=== PATIENT | female | born 1970 | race Hispanic/Latino ===

== ENCOUNTER 2018-11-17 09:07 | Inpatient (IN) | payer BC ==
[2018-11-17 09:15] VITALS: BMI 19.8
[2018-11-17] MEDS ORDERED: Albuterol-Ipratrop 3 mg / 0.5 (3 ml) UD INH STA (10:12)
[2018-11-17] MEDS ORDERED: Albuterol-Ipratrop 3 mg / 0.5 (3 ml) UD ONE (10:22)
[2018-11-17 11:21] LABS: BASO % 0.6 % (0.0-2.0); EOS # 0.2 K/uL (0.0-0.7); EOS % 3.6 % (0.0-4.0); HEMOGLOBIN 13.4 g/dL (12.0-16.0); LYMPH # 1.1 K/uL (1.0-4.3); LYMPH % 16.9 % (20.0-40.0); MEAN CELL VOLUME 101.1 fl (81.0-99.0); MEAN CORPUSCULAR HEMOGLOBIN 33.1 pg (27.0-31.0); MEAN CORPUSCULAR HGB CONC 32.7 g/dL (33.0-37.0); MEAN PLATELET VOLUME 7.8 fl (7.2-11.7); MONO # 0.6 K/uL (0.0-0.8); MONO % 9.5 % (0.0-10.0); NEUT # 4.6 K/uL (1.8-7.0); NEUT % 69.4 % (50.0-75.0); RBC 4.04 Mil/uL (3.80-5.20); RED CELL DISTRIBUTION WIDTH 13.6 % (11.5-14.5); WHITE BLOOD COUNT 6.6 K/uL (4.8-10.8)
[2018-11-17 11:28] LABS: BLOOD UREA NITROGEN 7 mg/dl (7-17); CALCIUM 9.2 mg/dL (8.4-10.2); GFR NON-AFRICAN AMERICAN > 60
[2018-11-17 11:37] LABS: B-TYPE NATRIURETIC PEPTIDE 103 pg/ml (0-450)
--- NOTE | 2018-11-17 11:39 | RAD ---
Date of service: 11/17/2018 HISTORY: cp dyspnea cough fever COMPARISON: No prior. TECHNIQUE: Chest PA and lateral FINDINGS: LUNGS: Right lower lobe infiltrate. PLEURA: No significant pleural effusion identified. No pneumothorax apparent. CARDIOVASCULAR: No aortic atherosclerotic calcification present. Normal cardiac size. No pulmonary vascular congestion. OSSEOUS STRUCTURES: No significant abnormalities. VISUALIZED UPPER ABDOMEN: Normal. OTHER FINDINGS: None. IMPRESSION: Right lower lobe infiltrate.
[2018-11-17] MEDS ORDERED: cefTRIAXone (Rocephin) 1 gm Inj ONE (11:49)
--- NOTE | 2018-11-17 12:30 | ED PDOC ---
HPI: SOB/CHF/COPD Time Seen by Provider: 11/17/18 09:47 Chief Complaint (Nursing): Shortness Of Breath Chief Complaint (Provider): fever, cough and SOB History Per: Patient History/Exam Limitations: no limitations Onset/Duration Of Symptoms: Days (x2 weeks) Current Symptoms Are (Timing): Still Present Associated Symptoms: Fever, Productive Cough. denies: Chest Pain Additional Complaint(s): Maggie Robison is a 48 year old female, with a past medical history of possible asthma, who presents to the emergency department complaining of fever, cough and difficulty breathing onset for x2 weeks. Patient states shortness of breath was worst today so she called the ambulance. Patient also reports an occasional wheezing and an intermittent fever that worsened today. She states x14 weeks ago she was told she had an infection, they checked her for the flu which came back negative. Patient was started on Z-jamir twice and Augmentin with no improvement of symptoms. She denies any nausea, vomiting, diarrhea or other medical complaints. PMD: Helio Chávez Past Medical History Reviewed: Historical Data, Nursing Documentation, Vital Signs Vital Signs: Last Vital Signs Temp 97.8 F 11/17/18 12:18 Pulse 80 11/17/18 12:18 Resp 25 H 11/17/18 12:18 BP 130/74 11/17/18 12:18 Pulse Ox 98 11/17/18 12:18 - Medical History PMH: Asthma (possible) - Surgical History Other surgeries: orthopedic surgeries - Family History Family History: States: Unknown Family Hx - Social History Current smoker - smoking cessation education provided: No Alcohol: Social Drugs: Denies - Immunization History Hx Influenza Vaccination: Yes (2018) - Home Medications Home Medications: Ambulatory Orders Medication Instructions Recorded RX: No Known Home Med 11/17/18 - Allergies Allergies/Adverse Reactions: Allergies Allergy/AdvReac Type Severity Reaction Status Date / Time azithromycin AdvReac Mild REDNESS Verified 11/17/18 14:16 Curb-65 Severity Score - CURB-65 Severity Score Confusion: No Bun >19mg/dl (>7mmol/L): No Respiratory Rate greater than/equal to 30: Yes Systolic BP <90 or Diastolic BP less than/equal 60mmHg: No Age >64: No Curb-65 Score: 1 Percentage 30-day mortality: 2.7% Review of Systems ROS Statement: Except As Marked, All Systems Reviewed And Found Negative Constitutional: Positive for: Fever Cardiovascular: Negative for: Chest Pain Respiratory: Positive for: Cough, Shortness of Breath, Wheezing Gastrointestinal: Negative for: Nausea, Vomiting, Diarrhea Physical Exam - Reviewed Nursing Documentation Reviewed: Yes Vital Signs Reviewed: Yes - Physical Exam Appears: Positive for: In Acute Distress (mild respiratory) Head Exam: Positive for: ATRAUMATIC, NORMAL INSPECTION, NORMOCEPHALIC Skin: Positive for: Normal Color, Warm, Dry Eye Exam: Positive for: Normal appearance, EOMI Neck: Positive for: Normal, Painless ROM, Supple Cardiovascular/Chest: Positive for: Regular Rate, Rhythm. Negative for: Murmur Respiratory: Positive for: Accessory Muscle Use (mild), Wheezing, Respiratory Distress (mild), Other (tachypnea) Gastrointestinal/Abdominal: Positive for: Normal Exam, Soft. Negative for: Tenderness Back: Positive for: Normal Inspection. Negative for: L CVA Tenderness, R CVA Te nderness, Vertebral Tenderness Extremity: Positive for: Normal ROM (upper and lower extremities). Negative for: Deformity, Swelling Neurologic/Psych: Positive for: Alert, Oriented. Negative for: Motor/Sensory Deficits - Laboratory Results Result Diagrams: 11/17/18 10:15 11/17/18 10:15 Lab Results: Troponin I < 0.0120 ng/mL (0.00-0.120) 11/17/18 10:15 NT-Pro-B Natriuret Pep 103 pg/ml (0-450) 11/17/18 10:15 - ECG O2 Sat by Pulse Oximetry: 98 (RA) Pulse Ox Interpretation: Normal - Radiology X-Ray: Viewed By Me, Read By Radiologist X-Ray Interpretation: Infiltrates - Physician Consult Information Time Consulting Physican Contacted: 12:00 Physician Contacted: Daniel Franks Medical Decision Making Medical Decision Making: Time: 09:47 Initial Impression: Shortness of breath, wheezing, fever and cough. Differential includes bronchitis, PNA, and influenza. Initial Plan: --EKG --B-Type Natriuretic Peptide --BMP --Troponin I --CBC w/ differential --Chest two views (PA/LAT) [RAD] --Duoneb 3 ml INH --Rocephin 1gm IVPB --SOLU-medrol 125 mg IVP --Blood culture --Influenza A B --Reevaluation 11:35 CXR FINDINGS: LUNGS: Right lower lobe infiltrate. PLEURA: No significant pleural effusion identified. No pneumothorax apparent. CARDIOVASCULAR: No aortic atherosclerotic calcification present. Normal cardiac size. No pulmonary vascular congestion. OSSEOUS STRUCTURES: No significant abnormalities. VISUALIZED UPPER ABDOMEN: Normal. OTHER FINDINGS: None. IMPRESSION: Right lower lobe infiltrate. Scribe Attestation: Documented by Maged Granger, acting as a scribe for Hudson Kwon MD Provider Scribe Attestation: All medical record entries made by the Scribe were at my direction and personally dictated by me. I have reviewed the chart and agree that the record accurately reflects my personal performance of the history, physical exam, medical decision making, and the department course for this patient. I have also personally directed, reviewed, and agree with the discharge instructions and disposition. Disposition - Clinical Impression Clinical Impression: Pneumonia - Patient ED Disposition Is Patient to be Admitted: No Discussed With DrShaylee: Daniel Chávez Doctor Will See Patient In The: Hospital Counseled Patient/Family Regarding: Studies Performed, Diagnosis - Disposition Disposition Time: 12:00 Condition: FAIR - Pt Status Changed To: Hospital Disposition Of: Inpatient - Admit Certification Admit to Inpatient:: After my assessment, the patient will require hospitalization for at least two midnights. This is because of the severity of symptoms shown, intensity of services needed, and/or the medical risk in this patient being treated as an outpatient. - POA Present On Arrival: None Core Measure Indicators: Pneumonia
[2018-11-17] MEDS ORDERED: Sodium Chloride 3% for Inhalation 4 ML VIAL.NEB IH PRN (12:38)
[2018-11-17] MEDS ORDERED: Azithromycin 500 MG IV IVPB ONE (13:02)
[2018-11-17] MEDS: Azithromycin 500 MG in Sodium Chloride 0.9% 250 ML IVPB SCH (13:04)
[2018-11-17 14:43] LABS: SQUAMOUS EPITHIAL 12 /hpf (0-5); URINE BACTERIA RARE (<OCC)
[2018-11-17 15:01] LABS: URINE CLARITY Clear (Clear); URINE COLOR YELLOW (YELLOW); URINE GLUCOSE (UA) NEGATIVE (NEGATIVE)
[2018-11-17 15:02] LABS: URINE BILIRUBIN NEGATIVE (NEGATIVE); URINE BLOOD NEGATIVE (NEGATIVE); URINE LEUKOCYTE ESTERASE NEGATIVE Leu/uL (Negative); URINE PROTEIN 30 mg/dL (NEGATIVE); URINE UROBILINOGEN 0.2 mg/dL (0.2-1.0)
[2018-11-17] MEDS: Albuterol 0.083% Inhal Sol (2.5 mg/3 mL) UD INH PRN ×2 (16:58→23:38)
[2018-11-17] MEDS: guaiFENesin 600 mg ER Tab PO SCH (20:31)
--- NOTE | 2018-11-17 23:29 | CP.PCM.HP ---
History of Present Illness - History of Present Illness History of Present Illness: 48 yo admitted for RLL pneumonia Present on Admission - Present on Admission Any Indicators Present on Admission: No Past Patient History - Past Medical History & Family History Past Medical History?: Yes - Past Social History Alcohol: Social Drugs: Denies - CARDIAC Hx Cardiac Disorders: No - PULMONARY Hx Asthma: Yes (possible) - NEUROLOGICAL Hx Neurological Disorder: No - HEENT Hx HEENT Problems: No - RENAL Hx Chronic Kidney Disease: No - ENDOCRINE/METABOLIC Hx Endocrine Disorders: No - HEMATOLOGICAL/ONCOLOGICAL Hx Blood Disorders: No - INTEGUMENTARY Hx Dermatological Problems: No - MUSCULOSKELETAL/RHEUMATOLOGICAL Hx Musculoskeletal Disorders: No Hx Falls: No - GASTROINTESTINAL Hx Gastrointestinal Disorders: No - GENITOURINARY/GYNECOLOGICAL Hx Genitourinary Disorders: No - PSYCHIATRIC Hx Psychophysiologic Disorder: No Hx Substance Use: No - SURGICAL HISTORY Hx Surgeries: Yes Other/Comment: left ankle surgery - ANESTHESIA Hx Anesthesia: Yes Hx Anesthesia Reactions: No Hx Malignant Hyperthermia: No Meds Allergies/Adverse Reactions: Allergies Allergy/AdvReac Type Severity Reaction Status Date / Time azithromycin AdvReac Mild REDNESS Verified 11/17/18 14:16 Physical Exam - Respiratory Exam Respiratory Exam: NORMAL BREATHING PATTERN - Cardiovascular Exam Cardiovascular Exam: REGULAR RHYTHM - GI/Abdominal Exam GI & Abdominal Exam: Normal Bowel Sounds Results - Vital Signs Recent Vital Signs: Last Vital Signs Temp 97.8 F 11/17/18 14:13 Pulse 80 11/17/18 17:01 Resp 18 11/17/18 14:55 BP 137/75 11/17/18 14:13 Pulse Ox 98 11/17/18 15:04 - Labs Result Diagrams: 11/17/18 10:15 11/17/18 10:15 Labs: Laboratory Results - last 24 hr 11/17/18 11/17/18 11/17/18 10:15 10:15 11:45 WBC 6.6 RBC 4.04 Hgb 13.4 Hct 40.9 MCV 101.1 H MCH 33.1 H MCHC 32.7 L RDW 13.6 Plt Count 412 H MPV 7.8 Neut % (Auto) 69.4 Lymph % (Auto) 16.9 L [place] % (Auto) 9.5 Eos % (Auto) 3.6 Baso % (Auto) 0.6 Neut # (Auto) 4.6 Lymph # (Auto) 1.1 [place] # (Auto) 0.6 Eos # (Auto) 0.2 Baso # (Auto) 0.0 Sodium 139 Potassium 3.7 Chloride 98 Carbon Dioxide 27 Anion Gap 18 BUN 7 Creatinine 0.5 L Est GFR ( Amer) > 60 Est GFR (Non-Af Amer) > 60 Random Glucose 83 Calcium 9.2 Troponin I < 0.0120 NT-Pro-B Natriuret Pep 103 Urine Color Urine Clarity Urine pH Ur Specific [place] Urine Protein Urine Glucose (UA) Urine Ketones Urine Blood Urine Nitrate Urine Bilirubin Urine Urobilinogen Ur Leukocyte Esterase Urine RBC (Auto) Urine Microscopic WBC Ur Squamous Epith Cells Urine Bacteria Influenza Typ A,B (EIA) Negative for flu a/b Mycoplasma pneumon IgM 11/17/18 11/17/18 12:15 12:15 WBC RBC Hgb Hct MCV MCH MCHC RDW Plt Count MPV Neut % (Auto) Lymph % (Auto) [place] % (Auto) Eos % (Auto) Baso % (Auto) Neut # (Auto) Lymph # (Auto) [place] # (Auto) Eos # (Auto) Baso # (Auto) Sodium Potassium Chloride Carbon Dioxide Anion Gap BUN Creatinine Est GFR ( Amer) Est GFR (Non-Af Amer) Random Glucose Calcium Troponin I NT-Pro-B Natriuret Pep Urine Color Yellow Urine Clarity Clear Urine pH 7.0 Ur Specific [place] 1.015 Urine Protein 30 Urine Glucose (UA) Negative Urine Ketones Trace H Urine Blood Negative Urine Nitrate Negative Urine Bilirubin Negative Urine Urobilinogen 0.2 Ur Leukocyte Esterase Negative Urine RBC (Auto) 2 Urine Microscopic WBC 2 Ur Squamous Epith Cells 12 H Urine Bacteria Rare Influenza Typ A,B (EIA) Mycoplasma pneumon IgM Negative Assessment & Plan - Assessment and Plan (Free Text) Assessment: RLL pneumonia IVF O2 ABX Pulmonary consult - Date & Time Date: 11/17/18 Time: 22:22
[2018-11-18] MEDS: Albuterol 0.083% Inhal Sol (2.5 mg/3 mL) UD INH PRN ×2 (06:35→21:08)
[2018-11-18 06:49] LABS: BASO % 0.1 % (0.0-2.0); EOS % 0.3 % (0.0-4.0); HEMOGLOBIN 12.8 g/dL (12.0-16.0); LYMPH # 1.5 K/uL (1.0-4.3); LYMPH % 15.9 % (20.0-40.0); MEAN CELL VOLUME 100.9 fl (81.0-99.0); MEAN CORPUSCULAR HEMOGLOBIN 33.3 pg (27.0-31.0); MEAN PLATELET VOLUME 7.6 fl (7.2-11.7); MONO # 0.8 K/uL (0.0-0.8); NEUT # 7.2 K/uL (1.8-7.0); NEUT % 75.7 % (50.0-75.0); NRBC % 0.1 % (0.0-0.0); RBC 3.83 Mil/uL (3.80-5.20); RED CELL DISTRIBUTION WIDTH 13.1 % (11.5-14.5); WHITE BLOOD COUNT 9.5 K/uL (4.8-10.8)
[2018-11-18 06:58] LABS: ALB/GLOB RATIO 1.1 (1.0-2.1); ALBUMIN 3.6 g/dL (3.5-5.0); ALT/SGPT 25 U/L (9-52); AST/SGOT 21 U/L (14-36); BLOOD UREA NITROGEN 11 mg/dl (7-17); GFR NON-AFRICAN AMERICAN > 60
--- NOTE | 2018-11-18 09:30 | CARD ---
APPROVED REPORT Date of service: 11/17/2018 EKG Measurement Heart [id number] <Conclusion> Normal sinus rhythm Rightward axis Borderline ECG
[2018-11-18] MEDS: Azithromycin 500 MG in Sodium Chloride 0.9% 250 ML IVPB SCH (09:40)
[2018-11-18] MEDS: guaiFENesin 600 mg ER Tab PO SCH ×2 (09:40→22:08)
[2018-11-18] MEDS ORDERED: Hydrocortisone- 100 MG in Sodium Chloride 0.9% 100 ML IV SCH (12:15)
--- NOTE | 2018-11-18 12:18 | CP.PCM.CON ---
History of Present Illness - History of Present Illness History of Present Illness: This 48-year-old female nonsmoker was seen on consultation because of a right lower lobe pneumonia. She has been symptomatic for in excess of 2 weeks with congested cough productive of thick greenish sputum. She has had fever and chill s but no chest pain or hemoptysis. She has been treated with 2 courses of antibiotics from her primary medical doctor as an outpatient, the first being azithromycin and the second being Augmentin. Despite this medical treatment she continues to remain symptomatic and becoming more short of breath prompting presentation to the emergency room yesterday morning. Chest x-ray revealed a right lower lobe infiltrate without any fever or leukocytosis. She does have a possible diagnosis of asthma as an outpatient and was given aerosol therapy in the emergency room after which her breathing did improve. There may have been a similar episode of pneumonia, less severe, in the past which resolved with ou tpatient therapy. She is known to have recurrent sinus disease with posterior rhinorrhea and bronchitis in the past as well. Review of Systems - Review of Systems All systems: reviewed and no additional remarkable complaints except - Constitutional Constitutional: Chills, Fever - EENT Nose/Mouth/Throat: Nasal Congestion, Hoarsness, Sore Throat - Respiratory Respiratory: Cough, Wheezing, Chest Congestion, Change in Mucous Color Past Patient History - Infectious Disease Hx of Infectious Diseases: None - Past Medical History & Family History Past Medical History?: Yes Past Family History: Reviewed and not pertinent - Past Social History Smoking Status: Never Smoked (remote light cigarette use for a short time) Chewing Tobacco Use: No Cigar Use: No Alcohol: Social Drugs: Denies - CARDIAC Hx Cardiac Disorders: No - PULMONARY Hx Asthma: Yes (possible) Hx Bronchitis: Yes Hx Pneumonia: Yes (possibly last year improved with outpatient rx.) - NEUROLOGICAL Hx Neurological Disorder: No - HEENT Hx Sinusitis: Yes - RENAL Hx Chronic Kidney Disease: No - ENDOCRINE/METABOLIC Hx Endocrine Disorders: No - HEMATOLOGICAL/ONCOLOGICAL Hx Blood Disorders: No - INTEGUMENTARY Hx Dermatological Problems: No - MUSCULOSKELETAL/RHEUMATOLOGICAL Hx Musculoskeletal Disorders: No Hx Falls: No - GASTROINTESTINAL Hx Gastrointestinal Disorders: No - GENITOURINARY/GYNECOLOGICAL Hx Genitourinary Disorders: No - PSYCHIATRIC Hx Psychophysiologic Disorder: No Hx Substance Use: No - SURGICAL HISTORY Hx Surgeries: Yes Other/Comment: left ankle surgery - ANESTHESIA Hx Anesthesia: Yes Hx Anesthesia Reactions: No Hx Malignant Hyperthermia: No Meds Allergies/Adverse Reactions: Allergies Allergy/AdvReac Type Severity Reaction Status Date / Time azithromycin AdvReac Mild REDNESS Verified 11/17/18 14:16 - Medications Medications: Current Medications Acetaminophen (Tylenol 325mg Tab) 325 mg PO Q6 PRN PRN Reason: Sore Throat Acetylcysteine (Acetylcysteine 20%) 2 ml INH RBID DAVID Albuterol Sulfate (Albuterol 0.083% Inhal Zunilda (2.5 Mg/3 Ml) Ud) 2.5 mg INH RQ4 PRN PRN Reason: Shortness of Breath Last Admin: 11/18/18 06:35 Dose: 2.5 mg Guaifenesin (Mucinex La) 1,200 mg PO Q12 DAVID Last Admin: 11/18/18 09:40 Dose: 1,200 mg Azithromycin 500 mg/ Sodium (Chloride) 250 mls @ 250 mls/hr IVPB DAILY DAVID; Protocol Last Admin: 11/18/18 09:40 Dose: 250 mls/hr Ceftriaxone Sodium 1 gm/ (Sodium Chloride) 100 mls @ 100 mls/hr IVPB DAILY DAVID; Protocol Last Admin: 11/18/18 09:30 Dose: 100 mls/hr Hydrocortisone Sodium Succinate 100 mg/ Sodium Chloride 100 mls @ 100 mls/hr IV Q12 DAVID Zolpidem Tartrate (Ambien) 5 mg PO HS DAVID Last Admin: 11/18/18 00:02 Dose: 5 mg Physical Exam - Additional Findings Additional findings: Well-nourished, well-developed female in no acute distress. Supplemental oxygen via nasal cannula at 2 L/m. No cyanosis or dependent edema. No calf tenderness. No palpable lymphadenopathy. Nasal passages are patent bilaterally. No bleeding or exudate. Conjunctivae are injected bilaterally. No scleral icterus. No tenderness over the maxillary sinuses. Pharynx is injected posteriorly without any exudate. Mucous membranes are moist. Neck is supple and trachea is midline. No neck vein distention or carotid bruit. No palpable thyromegaly. No dullness on chest percussion. Equal expansion. Coarse rhonchi are heard throughout all lung tracey bilaterally. No audible wheezing. No bronchial breathing or egophony. Heart sounds are well heard and the rhythm is regular without murmur. Abdomen is soft and nontender. Normal bowel sounds. Results - Vital Signs Recent Vital Signs: Last Vital Signs Temp 97.8 F 11/18/18 08:35 Pulse 93 H 11/18/18 08:35 Resp 22 11/18/18 08:35 BP 114/68 11/18/18 08:35 Pulse Ox 96 11/18/18 08:35 - Labs Result Diagrams: 11/18/18 05:45 11/18/18 05:45 Labs: Laboratory Results - last 24 hr 11/17/18 11/17/18 11/17/18 11:45 12:15 12:15 WBC RBC Hgb Hct MCV MCH MCHC RDW Plt Count MPV Neut % (Auto) Lymph % (Auto) [place] % (Auto) Eos % (Auto) Baso % (Auto) Neut # (Auto) Lymph # (Auto) [place] # (Auto) Eos # (Auto) Baso # (Auto) Sodium Potassium Chloride Carbon Dioxide Anion Gap BUN Creatinine Est GFR ( Amer) Est GFR (Non-Af Amer) Random Glucose Calcium Total Bilirubin AST ALT Alkaline Phosphatase Total Protein Albumin Globulin Albumin/Globulin Ratio Vitamin B12 TSH 3rd Generation Urine Color Yellow Urine Clarity Clear Urine pH 7.0 Ur Specific [place] 1.015 Urine Protein 30 Urine Glucose (UA) Negative Urine Ketones Trace H Urine Blood Negative Urine Nitrate Negative Urine Bilirubin Negative Urine Urobilinogen 0.2 Ur Leukocyte Esterase Negative Urine RBC (Auto) 2 Urine Microscopic WBC 2 Ur Squamous Epith Cells 12 H Urine Bacteria Rare Influenza Typ A,B (EIA) Negative for flu a/b Mycoplasma pneumon IgM Negative 11/18/18 11/18/18 05:45 05:45 WBC 9.5 RBC 3.83 Hgb 12.8 Hct 38.7 MCV 100.9 H MCH 33.3 H MCHC 33.0 RDW 13.1 Plt Count 416 H MPV 7.6 Neut % (Auto) 75.7 H Lymph % (Auto) 15.9 L [place] % (Auto) 8.0 Eos % (Auto) 0.3 Baso % (Auto) 0.1 Neut # (Auto) 7.2 H Lymph # (Auto) 1.5 [place] # (Auto) 0.8 Eos # (Auto) 0.0 Baso # (Auto) 0.0 Sodium 137 Potassium 3.8 Chloride 98 Carbon Dioxide 26 Anion Gap 17 BUN 11 Creatinine 0.5 L Est GFR ( Amer) > 60 Est GFR (Non-Af Amer) > 60 Random Glucose 96 Calcium 9.0 Total Bilirubin 0.3 AST 21 ALT 25 Alkaline Phosphatase 73 Total Protein 7.0 Albumin 3.6 Globulin 3.4 Albumin/Globulin Ratio 1.1 Vitamin B12 958 H TSH 3rd Generation 4.46 Urine Color Urine Clarity Urine pH Ur Specific [place] Urine Protein Urine Glucose (UA) Urine Ketones Urine Blood Urine Nitrate Urine Bilirubin Urine Urobilinogen Ur Leukocyte Esterase Urine RBC (Auto) Urine Microscopic WBC Ur Squamous Epith Cells Urine Bacteria Influenza Typ A,B (EIA) Mycoplasma pneumon IgM Assessment & Plan (1) Pneumonia Assessment and Plan: right lower lobe Status: Acute Priority: High (2) Pleural effusion associated with pulmonary infection Assessment and Plan: suspected right parapneumonic effusion Status: Suspected Priority: High (3) Acute sinusitis with symptoms greater than 10 days Assessment and Plan: acute/recurrent Status: Acute Priority: High (4) Asthmatic bronchitis with acute exacerbation Status: Acute Priority: High - Assessment and Plan (Free Text) Plan: Continue current parenteral antibiotics in the form of azithromycin and ceftriaxone. Aerosol therapy with 20% Mucomyst/albuterol twice daily. Mucinex DM maximum strength, 1200 mg/60 mg every 12 hours. Supplemental oxygen via nasal cannula at 2 L/m. Chest PT using flutter valve device. Lateral decubitus x-ray to evaluate for pleural effusion and potential for thoracentesis. Sputum Gram stain and culture. Antigen and antibody studies for legionella, mycoplasma, strep pneumoniae. Pulmonary function study as outpatient. - Date & Time Date: 11/18/18 Time: 12:17
[2018-11-18 12:51] LABS: FOLATE 17.9 ng/mL
--- NOTE | 2018-11-18 13:24 | RAD ---
Date of service: 11/18/2018 PROCEDURE: Bilateral decubitus chest radiographs HISTORY: pneumonia COMPARISON: Chest x-ray 11/17/2018 TECHNIQUE: Right and left lateral decubitus chest radiographs are submitted. FINDINGS: Right lower lobe infiltrate persists. There is no evidence of right pleural effusion on the current examination on either decubitus radiograph. The previously identified pleural effusion may have resolved. There is no left pleural effusion. There is no pneumothorax. IMPRESSION: No evidence of pleural effusion. Right lower lobe infiltrate.
--- NOTE | 2018-11-18 18:47 | CP.PCM.PN ---
Subjective - Date & Time of Evaluation Date of Evaluation: 11/18/18 Time of Evaluation: 22:22 - Subjective Subjective: Pulmonary note appreciated Objective - Vital Signs/Intake and Output Vital Signs (last 24 hours): Temp Pulse Resp BP Pulse Ox 98.6 F 78 20 125/76 94 L 11/18/18 16:43 11/18/18 16:43 11/18/18 16:43 11/18/18 16:43 11/18/18 16:43 - Medications Medications: Current Medications Acetaminophen (Tylenol 325mg Tab) 325 mg PO Q6 PRN PRN Reason: Sore Throat Acetylcysteine (Acetylcysteine 20%) 2 ml INH RBID DAVID Albuterol Sulfate (Albuterol 0.083% Inhal Zunilda (2.5 Mg/3 Ml) Ud) 2.5 mg INH RQ4 PRN PRN Reason: Shortness of Breath Last Admin: 11/18/18 06:35 Dose: 2.5 mg Guaifenesin (Mucinex La) 1,200 mg PO Q12 DAVID Last Admin: 11/18/18 09:40 Dose: 1,200 mg Hydrocortisone Sodium Succinate (Solu-Cortef) 100 mg IV Q12H DAVID Last Admin: 11/18/18 14:38 Dose: 100 mg Azithromycin 500 mg/ Sodium (Chloride) 250 mls @ 250 mls/hr IVPB DAILY DAVID; Protocol Last Admin: 11/18/18 09:40 Dose: 250 mls/hr Ceftriaxone Sodium 1 gm/ (Sodium Chloride) 100 mls @ 100 mls/hr IVPB DAILY DAVID; Protocol Last Admin: 11/18/18 09:30 Dose: 100 mls/hr Zolpidem Tartrate (Ambien) 5 mg PO HS DAVID Last Admin: 11/18/18 00:02 Dose: 5 mg - Labs Labs: 11/18/18 05:45 11/18/18 05:45 PT 11.0 Seconds (9.8-13.1) 11/18/18 14:10 INR 1.0 11/18/18 14:10 APTT 21.0 Seconds (25.6-37.1) L 11/18/18 14:10 - Respiratory Exam Respiratory Exam: NORMAL BREATHING PATTERN - Cardiovascular Exam Cardiovascular Exam: REGULAR RHYTHM - GI/Abdominal Exam GI & Abdominal Exam: Normal Bowel Sounds Assessment and Plan - Assessment and Plan (Free Text) Assessment: RLL pneumonia IVF O2 ABX Pulmonary consult
[2018-11-18] MEDS: Acetylcysteine 20% Inhal Soln (4ml) INH SCH (21:08)
[2018-11-19] MEDS: Albuterol 0.083% Inhal Sol (2.5 mg/3 mL) UD INH PRN ×4 (04:43→21:46)
[2018-11-19] MEDS: Lactobacillus Acidophilus 500 MU Cap PO SCH ×2 (08:44→16:43)
[2018-11-19] MEDS: guaiFENesin 600 mg ER Tab PO SCH ×2 (08:45→23:22)
[2018-11-19] MEDS: Azithromycin 500 MG in Sodium Chloride 0.9% 250 ML IVPB SCH (08:46)
[2018-11-19] MEDS: Acetylcysteine 20% Inhal Soln (4ml) INH SCH ×2 (09:35→21:46)
--- NOTE | 2018-11-19 11:28 | CP.PCM.PN ---
Subjective - Date & Time of Evaluation Date of Evaluation: 11/19/18 Time of Evaluation: 11:26 - Subjective Subjective: Appears much improved this morning. Has had a good response to use of acetylcysteine aerosol. Vital signs remain stable, afebrile. Lateral decubitus chest x-rays did NOT show any pleural effusion. On examination the patient appears much more comfortable than she had been recently. There is still some occasional cough which is congested but less so. The pharynx is pink and mucous membranes are moist without exudate. There is no cyanosis. No dependent edema or clubbing. The neck is supple and trachea is midline. No dullness on chest percussion. Scattered rhonchi are present bilaterally which is much reduced from the day prior. No audible wheezing. Medium rales are heard in the right lower lobe posterior laterally. Heart sounds are well heard and rhythm is regular. We'll Continue current antibiotic regimen. (retained airways secretions may have been reason for outpatient treatment failure) Continue hydrocortisone. Will screen for CF (Unusual quality of sputum which is highly tenacious and difficult to expectorate). Objective - Vital Signs/Intake and Output Vital Signs (last 24 hours): Temp Pulse Resp BP Pulse Ox 98.2 F 94 H 20 98/58 L 93 L 11/19/18 07:59 11/19/18 07:59 11/19/18 07:59 11/19/18 07:59 11/19/18 07:59 - Medications Medications: Current Medications Acetaminophen (Tylenol 325mg Tab) 325 mg PO Q6 PRN PRN Reason: Sore Throat Acetylcysteine (Acetylcysteine 20%) 2 ml INH RBID COUNTS INCLUDE 234 BEDS AT THE [facility] Last Admin: 11/19/18 09:35 Dose: 2 ml Albuterol Sulfate (Albuterol 0.083% Inhal Zunilda (2.5 Mg/3 Ml) Ud) 2.5 mg INH RQ4 PRN PRN Reason: Shortness of Breath Last Admin: 11/19/18 09:35 Dose: 2.5 mg Guaifenesin (Mucinex La) 1,200 mg PO Q12 COUNTS INCLUDE 234 BEDS AT THE [facility] Last Admin: 11/19/18 08:45 Dose: 1,200 mg Hydrocortisone Sodium Succinate (Solu-Cortef) 100 mg IV Q12H COUNTS INCLUDE 234 BEDS AT THE [facility] Last Admin: 11/18/18 23:55 Dose: 100 mg Azithromycin 500 mg/ Sodium (Chloride) 250 mls @ 250 mls/hr IVPB DAILY DAVID; Protocol Last Admin: 11/19/18 08:46 Dose: 250 mls/hr Ceftriaxone Sodium 1 gm/ (Sodium Chloride) 100 mls @ 100 mls/hr IVPB DAILY DAVID; Protocol Last Admin: 11/19/18 08:45 Dose: 100 mls/hr Lactobacillus Acidophilus (Bacid Acidophilus) 1 cap PO BID DAVID Last Admin: 11/19/18 08:44 Dose: 1 cap Zolpidem Tartrate (Ambien) 5 mg PO HS DAVID Last Admin: 11/18/18 22:08 Dose: 5 mg - Labs Labs: 11/18/18 05:45 11/18/18 05:45 PT 11.0 Seconds (9.8-13.1) 11/18/18 14:10 INR 1.0 11/18/18 14:10 APTT 21.0 Seconds (25.6-37.1) L 11/18/18 14:10 Assessment and Plan (1) Pneumonia Status: Acute (2) Pleural effusion associated with pulmonary infection Status: Suspected (3) Acute sinusitis with symptoms greater than 10 days Status: Acute (4) Asthmatic bronchitis with acute exacerbation Status: Acute
--- NOTE | 2018-11-19 20:16 | CP.PCM.PN ---
Subjective - Date & Time of Evaluation Date of Evaluation: 11/19/18 Time of Evaluation: 22:22 - Subjective Subjective: Above pulmonary note appreciated Objective - Vital Signs/Intake and Output Vital Signs (last 24 hours): Temp Pulse Resp BP Pulse Ox 98.2 F 98 H 18 119/73 93 L 11/19/18 16:35 11/19/18 16:35 11/19/18 16:35 11/19/18 16:35 11/19/18 16:35 - Medications Medications: Current Medications Acetaminophen (Tylenol 325mg Tab) 325 mg PO Q6 PRN PRN Reason: Sore Throat Acetylcysteine (Acetylcysteine 20%) 2 ml INH RBID DAVID Last Admin: 11/19/18 09:35 Dose: 2 ml Albuterol Sulfate (Albuterol 0.083% Inhal Zunilda (2.5 Mg/3 Ml) Ud) 2.5 mg INH RQ4 PRN PRN Reason: Shortness of Breath Last Admin: 11/19/18 15:16 Dose: 2.5 mg Guaifenesin (Mucinex La) 1,200 mg PO Q12 DAVID Last Admin: 11/19/18 08:45 Dose: 1,200 mg Hydrocortisone Sodium Succinate (Solu-Cortef) 100 mg IV Q12H DAVID Last Admin: 11/19/18 12:38 Dose: 100 mg Azithromycin 500 mg/ Sodium (Chloride) 250 mls @ 250 mls/hr IVPB DAILY DAVID; Protocol Last Admin: 11/19/18 08:46 Dose: 250 mls/hr Ceftriaxone Sodium 1 gm/ (Sodium Chloride) 100 mls @ 100 mls/hr IVPB DAILY DAVID; Protocol Last Admin: 11/19/18 08:45 Dose: 100 mls/hr Lactobacillus Acidophilus (Bacid Acidophilus) 1 cap PO BID DAVID Last Admin: 11/19/18 16:43 Dose: 1 cap Zolpidem Tartrate (Ambien) 5 mg PO HS DAVID Last Admin: 11/18/18 22:08 Dose: 5 mg - Labs Labs: 11/18/18 05:45 11/18/18 05:45 PT 11.0 Seconds (9.8-13.1) 11/18/18 14:10 INR 1.0 11/18/18 14:10 APTT 21.0 Seconds (25.6-37.1) L 11/18/18 14:10 - Respiratory Exam Respiratory Exam: NORMAL BREATHING PATTERN - Cardiovascular Exam Cardiovascular Exam: REGULAR RHYTHM - GI/Abdominal Exam GI & Abdominal Exam: Normal Bowel Sounds Assessment and Plan - Assessment and Plan (Free Text) Assessment: RLL pneumonia IVF O2 ABX Pulmonary consult MCV?? B12 wnl
[2018-11-20] MEDS ORDERED: Lactobacillus Acidophilus 500 MU Cap PO SCH (09:00)
[2018-11-20] MEDS: guaiFENesin 600 mg ER Tab PO SCH (09:05)
[2018-11-20] MEDS: Azithromycin 500 MG in Sodium Chloride 0.9% 250 ML IVPB SCH (09:05)
[2018-11-20] MEDS: Acetylcysteine 20% Inhal Soln (4ml) INH SCH (09:21)
[2018-11-20] MEDS: Albuterol 0.083% Inhal Sol (2.5 mg/3 mL) UD INH PRN ×2 (09:22→14:03)
--- NOTE | 2018-11-20 10:14 | CP.PCM.PN ---
<Wyatt Gallegos - Last Filed: 11/20/18 11:20> Subjective - Date & Time of Evaluation Date of Evaluation: 11/20/18 Time of Evaluation: 08:30 - Subjective Subjective: Pt seen and examined at bedside. Denies acute overnight events. Reports significant improvement after starting adjusted expectorant therapy. Objective - Vital Signs/Intake and Output Vital Signs (last 24 hours): Temp Pulse Resp BP Pulse Ox 97.8 F 83 20 120/76 95 11/20/18 08:20 11/20/18 08:20 11/20/18 08:20 11/20/18 08:20 11/20/18 08:20 - Medications Medications: Current Medications Acetaminophen (Tylenol 325mg Tab) 325 mg PO Q6 PRN PRN Reason: Sore Throat Acetylcysteine (Acetylcysteine 20%) 2 ml INH RBID DAVID Last Admin: 11/20/18 09:21 Dose: 2 ml Albuterol Sulfate (Albuterol 0.083% Inhal Zunilda (2.5 Mg/3 Ml) Ud) 2.5 mg INH RQ4 PRN PRN Reason: Shortness of Breath Last Admin: 11/20/18 09:22 Dose: 2.5 mg Guaifenesin (Mucinex La) 1,200 mg PO Q12 DAVID Last Admin: 11/20/18 09:05 Dose: 1,200 mg Hydrocortisone Sodium Succinate (Solu-Cortef) 100 mg IV Q12H DAVID Last Admin: 11/19/18 23:46 Dose: 100 mg Azithromycin 500 mg/ Sodium (Chloride) 250 mls @ 250 mls/hr IVPB DAILY DAVID; Protocol Last Admin: 11/20/18 09:05 Dose: 250 mls/hr Ceftriaxone Sodium 1 gm/ (Sodium Chloride) 100 mls @ 100 mls/hr IVPB DAILY DAVID; Protocol Last Admin: 11/20/18 09:04 Dose: 100 mls/hr Lactobacillus Acidophilus (Bacid Acidophilus) 1 cap PO BID DAVID Last Admin: 11/20/18 09:05 Dose: 1 cap Zolpidem Tartrate (Ambien) 5 mg PO HS DAVID Last Admin: 11/19/18 23:22 Dose: 5 mg - Labs Labs: 11/18/18 05:45 11/18/18 05:45 PT 11.0 Seconds (9.8-13.1) 11/18/18 14:10 INR 1.0 11/18/18 14:10 APTT 21.0 Seconds (25.6-37.1) L 11/18/18 14:10 - Constitutional Appears: No Acute Distress - Eye Exam Eye Exam: EOMI - ENT Exam ENT Exam: Mucous Membranes Moist - Neck Exam Neck Exam: Full ROM - Respiratory Exam Respiratory Exam: absent: Accessory Muscle Use, Chest Wall Tenderness, Wheezes Additional comments: Mild phelgmatous cough - Cardiovascular Exam Cardiovascular Exam: REGULAR RHYTHM, +S1, +S2 - GI/Abdominal Exam GI & Abdominal Exam: Soft, Normal Bowel Sounds. absent: Tenderness - Extremities Exam Extremities Exam: absent: Calf Tenderness - Back Exam Back Exam: absent: CVA tenderness (L), CVA tenderness (R) - Neurological Exam Neurological Exam: Alert, Awake, CN II-XII Intact, Oriented x3 - Psychiatric Exam Psychiatric exam: Normal Affect, Normal Mood Assessment and Plan - Assessment and Plan (Free Text) Assessment: 48 yo F with pmhx of asthma admitted for RLL pneumonia Plan: Patient remains afebrile Lateral CXR w/o pleural effusion Increase in phlegm production Possible cause for outpatient abx failure 2/2 retained airway secretions. Pt to be discharged home. Encouraged rest and continue with -Completion of 10 day course of abx: Omnicef and Aithromycin -Medrol dose pack -Nebulized albuterol mixed with mucinex pt to f/u with pmd in 3-5 days Case and Plan d/w Dr. Tiny Gallegos MD PGY-2 <Daniel Franks - Last Filed: 11/21/18 08:27> Subjective - Subjective Subjective: Case discussed with the resident. Labs and physical findings were reviewed. Plan of care was discussed. Entry in the EMR by the resident was reviewed. Entry as made is correct and accurate. Objective - Vital Signs/Intake and Output Vital Signs (last 24 hours): Temp Pulse Resp BP Pulse Ox 98.2 F 92 H 18 113/68 93 L 11/20/18 15:55 11/20/18 15:55 11/20/18 15:55 11/20/18 15:55 11/20/18 15:55 - Labs Labs: 11/18/18 05:45 11/18/18 05:45 PT 11.0 Seconds (9.8-13.1) 11/18/18 14:10 INR 1.0 11/18/18 14:10 APTT 21.0 Seconds (25.6-37.1) L 11/18/18 14:10 Assessment and Plan (1) Pneumonia Status: Acute (2) Pleural effusion associated with pulmonary infection Status: Suspected (3) Acute sinusitis with symptoms greater than 10 days Status: Acute (4) Asthmatic bronchitis with acute exacerbation Status: Acute
[2018-11-20 15:56] VITALS: BP 113/68; PULSE 92; RESP 18; TEMP 98.2; O2SAT 93
--- NOTE | 2018-11-20 18:50 | CP.PCM.PN ---
Subjective - Date & Time of Evaluation Date of Evaluation: 11/20/18 Time of Evaluation: 22:22 - Subjective Subjective: Above noted Pulmonary note appreciated Objective - Vital Signs/Intake and Output Vital Signs (last 24 hours): Temp Pulse Resp BP Pulse Ox 98.2 F 92 H 18 113/68 93 L 11/20/18 15:55 11/20/18 15:55 11/20/18 15:55 11/20/18 15:55 11/20/18 15:55 - Labs Labs: 11/18/18 05:45 11/18/18 05:45 PT 11.0 Seconds (9.8-13.1) 11/18/18 14:10 INR 1.0 11/18/18 14:10 APTT 21.0 Seconds (25.6-37.1) L 11/18/18 14:10 - Respiratory Exam Respiratory Exam: NORMAL BREATHING PATTERN - Cardiovascular Exam Cardiovascular Exam: REGULAR RHYTHM - GI/Abdominal Exam GI & Abdominal Exam: Normal Bowel Sounds Assessment and Plan - Assessment and Plan (Free Text) Assessment: RLL pneumonia IVF O2 ABX Pulmonary consult MCV?? B12 wnl
== END 2018-11-20 16:38 | disposition home or self-care (01) | DRG 194 ==
LOC: H.ER 09:07 → H.ERHOLD 12:25 → H.MEDSURG1 14:31 → UNDODISIN 11-19 14:30
PROVIDERS: ADMIT Family Medicine Geriatric Medicine; ATTEND Family Medicine Geriatric Medicine
PROC: 5A0945Z Assistance with Respiratory Ventilation, 24-96 Consecutive Hours (ICD-10-PCS; principal; 2018-11-17)
DX: J18.1 Lobar pneumonia, unspecified organism (principal); J45.901 Unspecified asthma with (acute) exacerbation; J01.91 Acute recurrent sinusitis, unspecified; J01.90 Acute sinusitis, unspecified; Z91.018 Allergy to other foods